=== PATIENT | male | born 1995 | race Caucasian/White ===

== ENCOUNTER 2017-06-10 11:31 | Emergency (ER) | payer OTHER ==
[2017-06-10 11:41] VITALS: BP 132/83; PULSE 64; TEMP 98.6; BMI 26.6
--- NOTE | 2017-06-10 11:58 | PDOC ---
History of Present Illness <Leeann Lora S - Last Filed: 06/10/17 12:55> - History of Present Illness Initial Comments: 06/10/17 11:57 21 yo M with no significant pmh who presents with R sided ear pain. Patient reports developing R sided otalgia last Wednesday (06/04/17) described as an aural fullness following his flight to [place]. Wednesday morning he reports waking up with clear otorrhea draining from his R ear. Denies visualizing blood per ear. Endorses continued aural fullness, decreased hearing, and resolved R sided headache. Pain was initially aggravated with talking, or coughing, but has resolved. Has right sided jaw clicking when opening jaw 2/2 previous injury 9 years ago sustained in soccer incident. Denies N/V, fevers/chills, chest pain, cough, vertigo, URI symptoms, abdominal complaints, or urinary complaints. Has attempted OTC ear drops, H2O2, and qtip to ear. Denies q tip application prior to pain, recent ear infection. Denies penicillin or other antibiotic allergy. Denies h/o dental abscess or NIDDM. Does not follow with ENT. <Marcel Villalba - Last Filed: 06/10/17 13:43> - General Chief Complaint: Pain Stated Complaint: RIGHT EAR PAIN Time Seen by Provider: 06/10/17 11:36 Past History <Leeann Lora - Last Filed: 06/10/17 12:55> - Past Medical History COPD: No Other medical history: DENIES - Suicide/Smoking/Psychosocial Hx Smoking History: Never smoked Information on smoking cessation initiated: No Hx Alcohol Use: No Drug/Substance Use Hx: No Substance Use Type: None <Marcel Villalba - Last Filed: 06/10/17 13:43> - Past Medical History Allergies/Adverse Reactions: Allergies Allergy/AdvReac Type Severity Reaction Status Date / Time No Known Allergies Allergy Unverified 06/10/17 11:33 Home Medications: Ambulatory Orders Cephalexin [Keflex] 500 mg PO TID 5 Days #14 capsule MDD 3 tab 06/10/17 Sulfamethoxazole/Trimethoprim [Bactrim Ds -] 1 tab PO BID 5 Days #9 tablet MDD 2 tab 06/10/17 Review of Systems - Review of Systems Comments:: 06/10/17 11:56 GENERAL/CONSTITUTIONAL: No fever or chills. No weakness. HEAD, EYES, EARS, NOSE AND THROAT: + R sided ear pain. No change in vision. No sore throat.- CARDIOVASCULAR: No chest pain or shortness of breath RESPIRATORY: No cough, wheezing, or hemoptysis. GASTROINTESTINAL: No nausea, vomiting, diarrhea or constipation. GENITOURINARY: No dysuria, frequency, or change in urination. MUSCULOSKELETAL: No joint or muscle swelling or pain. No neck or back pain. SKIN: No rash NEUROLOGIC: No headache, vertigo, loss of consciousness, or change in strength/ sensation. ENDOCRINE: No increased thirst. No abnormal weight change HEMATOLOGIC/LYMPHATIC: No anemia, easy bleeding, or history of blood clots. ALLERGIC/IMMUNOLOGIC: No hives or skin allergy. <Marcel Villalba - Last Filed: 06/10/17 13:43> *Physical Exam - Vital Signs Last Vital Signs Temp Pulse Resp BP Pulse Ox 98.6 F 64 16 132/83 98 06/10/17 11:32 06/10/17 11:32 06/10/17 11:32 06/10/17 11:32 06/10/17 11:32 <Leeann Lora S - Last Filed: 06/10/17 12:55> - Vital Signs Last Vital Signs Temp Pulse Resp BP Pulse Ox 98.6 F 64 16 132/83 98 06/10/17 11:32 06/10/17 11:32 06/10/17 11:32 06/10/17 11:32 06/10/17 11:32 - Physical Exam Comments: 06/10/17 11:57 GENERAL: Awake, alert, and fully oriented, in no acute distress HEAD: No signs of trauma, normocephalic, atraumatic EYES: PERRLA, EOMI, sclera anicteric, conjunctiva clear ENT: R sided TM appears to be intact. TM slighthly erythematous but non bulging or retracted. There is visualized clotted blood in R sided ear canal. Absent external granulations or draining from R ear. Hearing grossly normal, nares patent, oropharynx clear without exudates. Moist mucosa. Negative facial or sinus ttp. Negative mastoid ttp. Normal dentiition. NECK: Normal ROM, supple, no lymphadenopathy, JVD, or masses LUNGS: No distress, speaks full sentences, clear to auscultation bilaterally HEART: Regular rate and rhythm, normal S1 and S2, no murmurs, rubs or gallops, peripheral pulses normal and equal bilaterally. EXTREMITIES : Normal inspection, Normal range of motion, no edema. No clubbing or cyanosis. SKIN: Warm, Dry, normal turgor, no rashes or lesions noted. <Marcel Villalba - Last Filed: 06/10/17 13:43> Medical Decision Making - Medical Decision Making 06/10/17 13:14 21 yo M with no significant pmh who presents with R sided ear pain. Patient reports developing R sided otalgia last Wednesday (06/04/17) described as an aural fullness following his flight to [place]. Wednesday morning he reports waking up with clear otorrhea draining from his R ear. Denies visualizing blood per ear. Endorses continued aural fullness, decreased hearing, and resolved R sided headache. Pain was initially aggravated with talking, or coughing, but has resolved. Has right sided jaw clicking when opening jaw 2/2 previous injury 9 years ago sustained in soccer incident. Denies N/V, fevers/chills, chest pain, cough, vertigo, URI symptoms, abdominal complaints, or urinary complaints. Has attempted OTC ear drops, H2O2, and qtip to ear. Denies q tip application prior to pain, recent ear infection. Denies penicillin or other antibiotic allergy. Denies h/o dental abscess or NIDDM. Does not follow with ENT. ED course: 06/10/17 13:36 Patient treated with Bactrim and Keflex in ED. Bactrim and Keflex sent to pharmacy. 06/10/17 13:42 Patient advised to f/u with ENT, and manage symptoms with Zyrtec. <Marcel Villalba - Last Filed: 06/10/17 13:43> *DC/Admit/Observation/Transfer <Leeann Lora - Last Filed: 06/10/17 12:55> - Discharge Dispostion Admit: No - Attestations Physician Attestion: 06/10/17 12:45 I attest to the information provided in this note. <Marcel Villalba - Last Filed: 06/10/17 13:43> Diagnosis at time of Disposition: Otitis externa Qualifiers: Otitis externa type: unspecified type Chronicity: acute Laterality: right Qualified Code(s): H60.501 - Unspecified acute noninfective otitis externa, right ear Otitis media Qualifiers: Otitis media type: unspecified Chronicity: acute Qualified Code(s): H66.90 - Otitis media, unspecified, unspecified ear - Discharge Dispostion Disposition: HOME Condition at time of disposition: Stable - Prescriptions Prescriptions: Cephalexin [Keflex] 500 mg PO TID 5 Days #14 capsule MDD 3 tab Sulfamethoxazole/Trimethoprim [Bactrim Ds -] 1 tab PO BID 5 Days #9 tablet MDD 2 tab - Referrals Referrals: Efrem Dias [Non Staff, Medical] - - Patient Instructions Printed Discharge Instructions: DI for Otitis Externa Additional Instructions: Please return to the emergency department with any new or worsening symptoms or concerns. Please follow up with ear, nose, throat physician within one week. Please take Bactram and Keflex as perscribed. You can also take Zyrtec or Elena for symptom control. - Post Discharge Activity Forms/Work/School Notes: Back to School
[2017-06-10] MEDS ORDERED: CEPHALEXIN MONOHYDRATE 500 MG CAPSULE (UD) PO ONE (12:42)
[2017-06-10] MEDS ORDERED: SULFAMETHOXAZOLE/TRIMETHOPRIM 800MG/160MG D.S. TABLET PO ONE (12:42)
[2017-06-10] MEDS ORDERED: SULFAMETHOXAZOLE/TRIMETHOPRIM 800MG/160MG D.S. TABLET ONE (12:54)
[2017-06-10] MEDS ORDERED: CEPHALEXIN MONOHYDRATE 500 MG CAPSULE (UD) ONE (12:55)
--- NOTE | 2017-06-10 12:59 | PDOC ---
Attending Attestation - Resident Resident Name: Marcel Villalba - ED Attending Attestation I have performed the following: I have examined & evaluated the patient, The case was reviewed & discussed with the resident, I agree w/resident's findings & plan, Exceptions are as noted - HPI HPI: Right ear pain 06/10/17 12:57 - Physicial Exam PE: Mild to moderate swelling r ear lobe and canal Patient received first dode of at here in the ER 06/10/17 12:58 - Medical Decision Making right otitis, follow up with ENT 06/10/17 12:59
== END 2017-06-10 13:06 | disposition home or self-care (01) ==
LOC: FER 11:31
DX: H60.501 Unspecified acute noninfective otitis externa, right ear (principal); H66.90 Otitis media, unspecified, unspecified ear
CPT/HCPCS: 99281-25

== ENCOUNTER 2020-02-28 15:29 | Emergency (ER) | payer OTHER ==
--- NOTE | 2020-02-28 15:41 | TELE ---
HPI Do you have fever,cough or shortness of breath?: No - General Reason For Visit: COVID 19 TEST History Source: Patient Past History - Medical History Allergies/Adverse Reactions: Allergies Allergy/AdvReac Type Severity Reaction Status Date / Time No Known Allergies Allergy Unverified 06/10/17 11:33 Home Medications: Ambulatory Orders Cephalexin [Keflex] 500 mg PO TID 5 Days #14 capsule MDD 3 tab 06/10/17 Sulfamethoxazole/Trimethoprim [Bactrim Ds -] 1 tab PO BID 5 Days #9 tablet MDD 2 tab 06/10/17 COPD: No - Psycho-Social/Smoking History Smoking History: Never smoked Review of Systems - Review of Systems Constitutional: No: Fever Respiratory: No: Cough *Physical Exam - Physical Exam Respiratory/Chest: negative: Respiratory Distress Discharge Diagnosis at time of Disposition: Encounter by telehealth for suspected COVID-19 - Referrals - Patient Instructions - Discharge Disposition: HOME Condition at time of Disposition: Stable
== END 2020-02-28 15:41 | disposition home or self-care (01) ==
LOC: JVIRT 15:29
DX: Z11.59 Encounter for screening for other viral diseases (principal)
CPT/HCPCS: C9803; Q3014-GT; U0003